=== PATIENT | male | born 1995 | race African-American/Black ===

== ENCOUNTER 2016-07-13 18:37 | Emergency (ER) | payer SELFPAY ==
[2016-07-13 18:39] VITALS: BP 124/73; PULSE 84; RESP 20; TEMP 98.3; O2SAT 99
--- NOTE | 2016-07-13 21:15 | PD ---
Physical Exam Date Seen by Provider: Jul 13, 2016 Time Seen by Provider: 21:13 Narrative 20 YOBM SPIDER BITE R FLANK X 4 DAYS. NO F/C VSS. AWAITING BED PLACEMENT Data Data Last Documented VS Vital Signs Date Time Temp Pulse Resp B/P Pulse Ox O2 Delivery O2 Flow Rate FiO2 07/13/16 18:39 98.3 84 20 124/73 99 Room Air [facility] Medical Record Reviewed: Yes Supervised Visit with CARINE: Yes Scripts No Active Prescriptions or Reported Meds Fabián Albright Jul 13, 2016 21:15
--- NOTE | 2016-07-13 21:24 | PD ---
HPI Chief Complaint: Bite or Sting Time Seen by Provider: 21:15 Travel History International Travel<30 days: No Contact w/Intl Traveler<30days: No Traveled to known affect area: No History of Present Illness HPI 20-year-old male with no significant past medical history presents for evaluation of area of skin redness and tenderness. Symptoms started 4 days ago on the right lower abdomen. He hypothesizes that he was bitten by a spider although he does not recall any bug bites or puncture wounds or spider bites. He denies fevers or chills. Denies any IV drug abuse. Symptoms have persisted which prompted evaluation. He has no other complaints. PFSH Past Medical History Psychiatric: Yes (ADHD) Immunizations Current: Yes Social History Alcohol Use: No Tobacco Use: No Substance Use: No Allergies-Medications (Allergen,Severity, Reaction): Coded Allergies: No Known Allergies (Verified , 07/13/16) Reported Meds & Prescriptions Reported Meds & Active Scripts Active Keflex (Cephalexin) 500 Mg Cap 500 Mg PO Q8H Bactrim DS (Sulfamethoxazole-Trimethoprim) 800-160 Mg Tab 1 Tab PO BID Reported [Unkwn Depression Med] 1 Tab PO DAILY Review of Systems General / Constitutional: No: Fever, Chills Skin: Positive Other (skin redness, soft tissue swelling, pain) Physical Exam Narrative GENERAL: Well-developed well-nourished male in no acute distress SKIN: Warm and dry. 2 cm fluctuant abscess which drains purulent discharge centrally when palpated. Located on the right lower abdominal wall. Minimal surrounding erythema. Mild right inguinal lymphadenopathy. HEAD: Atraumatic. Normocephalic. EYES: Pupils equal and round. No scleral icterus. No injection or drainage. ENT: No nasal bleeding or discharge. Mucous membranes pink and moist. NECK: Trachea midline. No JVD. CARDIOVASCULAR: Regular rate and rhythm. No murmur appreciated. RESPIRATORY: No accessory muscle use. Clear to auscultation. Breath sounds equal bilaterally. GASTROINTESTINAL: Abdomen soft, non-tender, nondistended. Skin as noted above. MUSCULOSKELETAL: No obvious deformities. NEUROLOGICAL: Awake and alert. No obvious cranial nerve deficits. Motor grossly within normal limits. Normal speech. Data Data Last Documented VS Vital Signs Date Time Temp Pulse Resp B/P Pulse Ox O2 Delivery O2 Flow Rate FiO2 07/13/16 18:39 98.3 84 20 124/73 99 Room Air Orders Lidocai-Epi 1%-1:100,000 Inj (Xylocaine- (07/13/16 21:30) Wound Culture And Gram Stain (07/13/16 21:21) [facility] Medical Decision Making Medical Screen Exam Complete: Yes Emergency Medical Condition: Yes Medical Record Reviewed: Yes Differential Diagnosis Abscess, cellulitis, erysipelas, infected cyst Narrative Course Examination reveals an abscess on the right lower abdominal wall. Incision and drainage will be performed. He verbally consents. Wound culture will be performed. He will be discharged on Bactrim and Keflex pending wound culture results. Procedures Procedure Narrative INCISION AND DRAINAGE OF ABSCESS: The area was prepped and was sterilely draped. A subcutaneous wheal of 1% Xylocaine with epinephrine with a total number 5 mL was used to anesthetize the area. The area was properly anesthetized. A number 11 scalpel was used to make a 1 -cm incision across the area of the abscess. Cultures were obtained. The abscess was drained an irrigated with normal saline. Diagnosis Primary Impression: Abscess Additional Instructions: Wash daily with soap and water and apply antibiotic cream, clean bandages. Take the antibiotics as prescribed. Return for evidence of worsening infection such as increasing redness and soft tissue swelling, fevers. Med/Other Pt SpecificInfo: Prescription(s) given, Wound Care Scripts Cephalexin (Keflex)500 Mg Bga440 Mg PO Q8H #30 CAP Ref 0 Prov:Tyler Byrne MD 07/13/16 Sulfamethoxazole-Trimethoprim (Bactrim DS)800-160 Mg Tab1 Tab PO BID #20 TAB Ref 0 Prov:Tyler Byrne MD 07/13/16 Disposition: 01 DISCHARGE HOME Condition: Stable Javier Veronica Jul 13, 2016 21:24
[2016-07-13] MEDS ORDERED: LIDOCAINE 1%/EPINEPHrine 1:100,000 SOLN 20 ML VIAL INFIL ONE (21:30)
[2016-07-13] MEDS ORDERED: [UNRECOGNIZED DRUG - REMARK] PO (21:33)
[2016-07-13] MEDS ORDERED: CEPH-460 PO (21:48)
[2016-07-13] MEDS ORDERED: BACT800T5 PO (21:48)
[2016-07-13] MEDS ORDERED: CEPHALEXIN MONOHYDRATE 500 MG CAP PO ONE (22:00)
[2016-07-13] MEDS ORDERED: SULFAMETHOXAZOLE-TRIMETHOPRIM DS 800-160 MG TAB PO ONE (22:00)
== END 2016-07-13 22:03 | disposition home or self-care (01) ==
LOC: NETRI 18:37
DX: L02.211 Cutaneous abscess of abdominal wall (principal); B95.62 Methicillin resistant Staphylococcus aureus infection as the cause of diseases classified elsewhere
CPT/HCPCS: 10060; 86403; 87070; 87186; 87205

== ENCOUNTER 2016-12-28 21:39 | Emergency (ER) | payer SELFPAY ==
[~2016-12-28 21:39] MED LIST: BACT800T5 PO; CEPH-460 PO; [UNRECOGNIZED DRUG - REMARK] PO
[2016-12-28 21:44] VITALS: BP 121/76; PULSE 76; RESP 15; TEMP 98.5; O2SAT 100
--- NOTE | 2016-12-29 00:27 | PD ---
HPI Chief Complaint: Complaint Time Seen by Provider: 00:21 Travel History International Travel<30 days: No Contact w/Intl Traveler<30days: No Traveled to known affect area: No History of Present Illness HPI 21-year-old black male presents to emergency department stating that over the past week he has had increasing urinary frequency, dysuria and a white to yellowish urethral discharge. He does admit to sexual intercourse but states that he feels the condoms are not working because they're coming off prematurely. He denies any rashes or lesions. No fever chills. No nausea vomiting. History Past Medical Histgory Medical History: Denies Significant Hx Past Surgical History Surgical History: No Previous Surgery Social History Alcohol Use: No Tobacco Use: No Allergies-Medications (Allergen,Severity, Reaction): Coded Allergies: *MDRO Multi-Drug Resistant Organism (Verified Adverse Reaction, Unknown, ) MRSA (abdomen) - 07/13/2016 Reported Meds & Prescriptions Reported Meds & Active Scripts Active Keflex (Cephalexin) 500 Mg Cap 500 Mg PO Q8H Bactrim DS (Sulfamethoxazole-Trimethoprim) 800-160 Mg Tab 1 Tab PO BID Reported [Unkwn Depression Med] 1 Tab PO DAILY Review of Systems Except as stated in HPI: all other systems reviewed are Neg Physical Exam Narrative GENERAL: This is a well-nourished, well-developed patient, in no apparent distress. SKIN: No rashes, ecchymoses or lesions. Warm and dry. HEAD: Atraumatic. Normocephalic. EYES: PERRL, EOMI, no discharge or injection. No scleral icterus. EARS: Clear NOSE: Nasal turbinates appear normal. THROAT: Mucosa pink and moist. Airway patent. NECK: Trachea midline. supple, moves head freely. LUNGS: Clear to auscultation. CV: Regular in rhythm. ABDOMEN: Soft nontender. EXT: No clubbing cyanosis or edema. GENITOURINARY: Circumcised. Testes descended bilaterally without evidence of rotation. No lesions or erythema. Positive beige urethral discharge. Data Data Last Documented VS Vital Signs Date Time Temp Pulse Resp B/P (MAP) Pulse Ox O2 Delivery O2 Flow Rate FiO2 12/28/16 21:44 98.5 76 15 121/76 (91) 100 Room Air MDM Medical Screen Exam Complete: Yes Emergency Medical Condition: No Differential Diagnosis MDM: Moderate Differential diagnoses: Chlamydia, gonorrhea, syphilis, chancroid, hepatitis, HIV, herpes Narrative Course A medical screening exam was performed: At the time of evaluation the presenting medical condition was determined not to be of an emergent nature. The patient was given the option of receiving additional care, but declined. Patient was given options for additional community resources from which to obtain care. The Patient Has Been advised to seek medical attention for their presenting complaint. The patient has been advised to return to the ER at any time if an emergent condition develops. Primary Impression: Encounter for medical screening examination Condition: Fabián Lau Dec 29, 2016 00:27
== END 2016-12-29 00:45 | disposition left against medical advice (07) ==
LOC: NEPD 21:39
DX: R35.0 Frequency of micturition (principal); R30.0 Dysuria; R36.9 Urethral discharge, unspecified
CPT/HCPCS: 99281